=== PATIENT | male | born 1960 | race Caucasian/White ===

== ENCOUNTER 2022-06-13 14:55 | Emergency (ER) | payer BC ==
[~2022-06-13] VITALS: Ht 177.8 cm; Wt 131.8 kg
[~2022-06-13 14:55] MED LIST: BLOOD PRESSURE PO; DOXYCYCLINE 10100 MG PO; INDOCIN 25MG CA25 MG PO; ZYLOPRIM 100MG100 MG PO
[2022-06-13 14:58] VITALS: TEMP 97.9
[2022-06-13] MEDS ORDERED: NORCO 325 MG-51 TAB PO (18:24)
[2022-06-13 19:02] VITALS: BP 130/81; PULSE 80
== END 2022-06-13 19:00 | disposition home or self-care (01) ==
LOC: COL.ER 14:55
DX: S43.015A Anterior dislocation of left humerus, initial encounter (principal); S70.12XA Contusion of left thigh, initial encounter; S80.11XA Contusion of right lower leg, initial encounter; V84.0XXA Driver of special agricultural vehicle injured in traffic accident, initial encounter; Y92.410 Unspecified street and highway as the place of occurrence of the external cause
CPT/HCPCS: J1170; J2704

== ENCOUNTER 2022-10-18 16:12 | Emergency (ER) | payer BC ==
[~2022-10-18] VITALS: Ht 177.8 cm; Wt 136.4 kg
[~2022-10-18 16:12] MED LIST changes: +NORCO 325 MG-51 TAB PO
[2022-10-18 16:53] LABS: INR 1.7 (0.8-3.0); PROTHROMBIN TIME 19.8 SECONDS (9.7-12.8)
[2022-10-18 16:56] LABS: BASO % 0.2 % (0.0-2.0); EOS % 0.1 % (0.0-4.0); GRAN # 8.5 K/mm3 (1.4-6.5); GRAN % 83.9 % (42.2-75.2); HEMATOCRIT 43.6 % (42.0-52.0); HEMOGLOBIN 14.3 g/dl (13.5-18.0); LYMPH # 0.7 K/mm3 (1.2-3.4); LYMPH % 6.8 % (20.0-51.0); MEAN CELL VOLUME 89 fl (80.0-100.0); MEAN CORPUSCULAR HEMOGLOBIN 29 pg (27-31); MEAN CORPUSCULAR HGB CONC 33 g/dl (33.0-37.0); MEAN PLATELET VOLUME 10.4 fl (7.4-10.4); MONO # 0.9 K/mm3 (0.1-0.6); MONO % 8.5 % (1.7-9.3); PARTIAL THROMBOPLASTIN TIME 32.1 SECONDS (26.0-37.0); PLATELET COUNT 146 K/mm3 (130-400); RED BLOOD COUNT 4.91 M/mm3 (4.20-5.60); REDCELL DISTRIBUTION WIDTH-CV 14.5 % (11.5-14.5)
[2022-10-18 17:04] LABS: ALBUMIN 3.4 gm/dL (3.4-4.8); BILIRUBIN,TOTAL 0.7 mg/dL (0.2-1.2); CALCIUM 8.9 mg/dL (8.4-10.2); CREATININE, serum 1.43 mg/dL (0.72-1.25); POTASSIUM 3.7 mmol/L (3.5-4.5); TOTAL PROTEIN 6.7 gm/dL (6.2-8.1)
[2022-10-18 17:10] LABS: TROPONIN-I 0.015 ng/mL (0.00-0.033)
[2022-10-18 17:50] LABS: COLLECTION METHOD CLEAN CATCH
[2022-10-18 17:55] LABS: MUCOUS Present (NOT PRESENT); SQUAMOUS EPITHELIAL 0-2 /hpf (0-10); URINE BACTERIA None Seen /hpf (NONE SEEN)
[2022-10-18 17:58] LABS: URINE APPEARANCE Clear (CLEAR/HAZY); URINE BLOOD Negative (NEGATIVE); URINE COLOR Yellow (YELLOW); URINE GLUCOSE Negative (NEGATIVE); URINE KETONE Negative (NEGATIVE); URINE NITRATE Negative (NEGATIVE); URINE PROTEIN(semi-quant) TRACE (NEGATIVE); URINE UROBILINOGEN 0.2 (NEGATIVE)
[2022-10-18] MEDS ORDERED: DOXYCYCLINE 10100 MG PO (18:14)
[2022-10-18 18:40] VITALS: BP 116/67; PULSE 58; TEMP 100.9
== END 2022-10-18 18:40 | disposition home or self-care (01) ==
LOC: COL.ER 16:12
PROVIDERS: Family Medicine
DX: T14.8XXA Other injury of unspecified body region, initial encounter (principal); E86.0 Dehydration; W57.XXXA Bitten or stung by nonvenomous insect and other nonvenomous arthropods, initial encounter
CPT/HCPCS: J7030

== ENCOUNTER 2023-08-24 10:31 | Inpatient (IN) | payer BC ==
[~2023-08-24] VITALS: Ht 177.8 cm; Wt 134.0 kg
[2023-08-24] VITALS (16 sets, daily range): BP systolic 109–143; BP diastolic 59–94; PULSE 59–115; TEMP 97.5–98.1
[2023-08-24] MEDS ORDERED: NS 1,000 ML IV ONE (11:15)
[2023-08-24] MEDS ORDERED: dilTIAZem 25 MG/5 ML VIAL IV ONE (11:15)
[2023-08-24 11:25] LABS: BASO % 0.4 % (0.0-2.0); EOS # 0.1 K/mm3 (0.0-0.7); EOS % 1.3 % (0.0-4.0); GRAN # 3.2 K/mm3 (1.4-6.5); GRAN % 58.9 % (42.2-75.2); HEMATOCRIT 40.7 % (42.0-52.0); HEMOGLOBIN 13.1 g/dl (13.5-18.0); LYMPH # 1.4 K/mm3 (1.2-3.4); LYMPH % 24.9 % (20.0-51.0); MEAN CELL VOLUME 90 fl (80.0-100.0); MEAN CORPUSCULAR HEMOGLOBIN 29 pg (27-31); MEAN CORPUSCULAR HGB CONC 32 g/dl (33.0-37.0); MEAN PLATELET VOLUME 11.9 fl (7.4-10.4); MONO # 0.8 K/mm3 (0.1-0.6); MONO % 14.3 % (1.7-9.3); PLATELET COUNT 153 K/mm3 (130-400); RED BLOOD COUNT 4.51 M/mm3 (4.20-5.60); REDCELL DISTRIBUTION WIDTH-CV 13.9 % (11.5-14.5)
[2023-08-24 11:34] LABS: INR 1.7 (0.8-3.0); PROTHROMBIN TIME 18.5 SECONDS (9.7-12.8)
[2023-08-24] MEDS ORDERED: ZYLOPRIM 300MG300 MG PO (11:58)
[2023-08-24] MEDS ORDERED: ELIQUIS 5MG PO (11:58)
[2023-08-24] MEDS ORDERED: COREG 6.256.25 MG/TA PO (11:58)
[2023-08-24] MEDS ORDERED: OMEGA-3 1000 MG1 CAP PO (11:59)
[2023-08-24] MEDS ORDERED: LASIX 20MG TABL20 MG PO (11:59)
[2023-08-24] MEDS ORDERED: ZESTRIL40 MG PO (12:00)
[2023-08-24] MEDS ORDERED: KLOR-CON SPRIN10 MEQ PO (12:00)
[2023-08-24] MEDS ORDERED: APRESOLINE50 MG PO (12:00)
[2023-08-24] MEDS ORDERED: VITAMIN C500 MG PO (12:01)
[2023-08-24] MEDS ORDERED: CRESTOR 10MG10 MG PO (12:01)
[2023-08-24] MEDS ORDERED: VITAMIN D31000 IU PO (12:02)
[2023-08-24] MEDS ORDERED: CORDARONE200 MG/TAB PO (12:03)
[2023-08-24 12:04] LABS: ALBUMIN 3.3 g/dL (3.4-4.8); CREATININE, serum 0.93 mg/dL (0.72-1.25); POTASSIUM 3.7 mEq/L (3.5-4.5); TOTAL PROTEIN 6.2 g/dl (6.2-8.1)
[2023-08-24 12:20] LABS: BILIRUBIN,TOTAL 0.9 mg/dL (0.2-1.2)
[2023-08-24] MEDS ORDERED: Acetaminophen 325 MG TAB PO PRN (13:00)
[2023-08-24] MEDS ORDERED: NS 1,000 ML IV SCH (13:00)
[2023-08-24] MEDS ORDERED: *Potassium Replacement Protocol MC SCH (13:15)
[2023-08-24 13:54] LABS: MAGNESIUM 1.9 mg/dL (1.6-2.6); PHOSPHOROUS 2.4 mg/dL (2.3-4.7)
[2023-08-24] MEDS ORDERED: Carvedilol 6.25 MG TAB PO SCH (17:00)
[2023-08-24] MEDS ORDERED: Omega-3 Fatty Acid Esters (OTC) 1,000 MG CAP PO SCH (21:00)
[2023-08-24] MEDS ORDERED: hydrALAZINE 25 MG TAB PO SCH (21:00)
[2023-08-24] MEDS ORDERED: Rosuvastatin 10 MG **** subs to Atorvastatin 20 MG PO SCH (21:00)
[2023-08-24] MEDS ORDERED: Apixaban 5 MG TAB PO SCH (21:00)
[2023-08-24] MEDS ORDERED: Allopurinol 300 MG TAB PO SCH (21:00)
[2023-08-24] MEDS ORDERED: Amiodarone 200 MG TAB PO SCH (21:00)
[2023-08-24] MEDS ORDERED: Atorvastatin 20 MG TAB PO SCH (21:00)
--- NOTE | 2023-08-24 21:34 | NUR ---
patient lying in bed, alert and oriented x4. pt denies chest pain and shortness of breath. IV in RH is patent, site is clean dry and intact with diltiazem running at 5ml/hr and NS running at 75 ml/hr. +1 pitting edema in BLE noted. pt has no further needs, questions, or concerns at this time. ambulating with steady gait, call light within reach. will continue to monitor.
[2023-08-25] VITALS (13 sets, daily range): BP systolic 110–136; BP diastolic 73–89; PULSE 82–107; TEMP 95.5–98.3
[2023-08-25 06:27] LABS: BASO % 0.3 % (0.0-2.0); EOS # 0.1 K/mm3 (0.0-0.7); EOS % 1.4 % (0.0-4.0); GRAN # 3.9 K/mm3 (1.4-6.5); HEMATOCRIT 36.9 % (42.0-52.0); HEMOGLOBIN 12.5 g/dl (13.5-18.0); LYMPH # 1.6 K/mm3 (1.2-3.4); LYMPH % 24.4 % (20.0-51.0); MEAN CELL VOLUME 87 fl (80.0-100.0); MEAN CORPUSCULAR HEMOGLOBIN 29 pg (27-31); MEAN CORPUSCULAR HGB CONC 34 g/dl (33.0-37.0); MEAN PLATELET VOLUME 11.6 fl (7.4-10.4); MONO # 0.7 K/mm3 (0.1-0.6); MONO % 11.6 % (1.7-9.3); PLATELET COUNT 139 K/mm3 (130-400); RED BLOOD COUNT 4.26 M/mm3 (4.20-5.60); REDCELL DISTRIBUTION WIDTH-CV 13.7 % (11.5-14.5)
[2023-08-25 06:48] LABS: CALCIUM 8.8 mg/dL (8.4-10.2); CREATININE, serum 0.92 mg/dL (0.72-1.25); MAGNESIUM 1.7 mg/dL (1.6-2.6); PHOSPHOROUS 2.7 mg/dL (2.3-4.7); POTASSIUM 3.7 mEq/L (3.5-4.5)
[2023-08-25] MEDS ORDERED: Potassium Bicarbonate/Citrate 20 MEQ Effervescent TAB PO SCH (08:00)
[2023-08-25] MEDS ORDERED: Lisinopril 20 MG TAB PO SCH (09:00)
[2023-08-25] MEDS ORDERED: Furosemide 20 MG TAB PO SCH (09:00)
--- NOTE | 2023-08-25 09:26 | NUR ---
Initial visit; Patient thanked Document Review Specialist for looking in on him and offering God's blessings for a thorough recovery. Document Review Specialist thanked patient for sharing his positive thoughts.
--- NOTE | 2023-08-25 10:13 | NUR ---
pattern worker met with patient and his to discuss discharge planning. Patient lives in [place] with his , Swapnil, P# [phone]. Second point of contact is Anitha, daughter, P# [phone]. PCP is Dr. Prescott, pharmacy is [facility]. No issues affording medications. Patient and wanted to establish a DPOA-HC. SW assisted patient and with completing their own separate DPOA-HC. SW and RN witnessed patient's signature. SW made copy of patient's DPOA and placed a copy in patient's chart and provided original and copies to patient and his . No DME. Patient reports being independent with ADLS and is able to transport herself to and from appointments. Patient would like to return home at time of discharge. Discharge plan: Home
--- NOTE | 2023-08-25 20:00 | NUR ---
Assessment complete. A&Ox3. Denies pain/nausea/shortness of breath. VS stable. Cardizem gtt@5ml/hr to right hand 20g-infusing without difficulty. Tele reporting Afib. Currently on RA. Has been up ambulating in the hallway. Plan of care discussed for this shift to include meds/NPO@0000/calling for questions/concerns. Verbalizes understanding. Call light in reach. Will monitor.
--- NOTE | 2023-08-25 20:27 | NUR ---
SPoke with Dr Ventura-QTC [id number]-okay to give sotalol. Hold Hyralazine at this time for BP 110/70.
[2023-08-26] VITALS (12 sets, daily range): BP systolic 120–141; BP diastolic 39–89; PULSE 63–85; TEMP 97.6–97.7
--- NOTE | 2023-08-26 05:05 | NUR ---
Patient had an uneventful night. TELE reporting A gib. VS stable. INT to right hand flushes well-cradizem@5ml/hr infusing without difficulty. Denies pain/nausea/shortness of breath. Has remained NPO since 0000 for cards work up today per order. Denies current needs. Call light in reach. Will monitor.
[2023-08-26 08:10] LABS: CALCIUM 8.6 mg/dL (8.4-10.2); CREATININE, serum 0.98 mg/dL (0.72-1.25); POTASSIUM 3.7 mEq/L (3.5-4.5)
[2023-08-26 08:42] LABS: BASO % 0.3 % (0.0-2.0); EOS # 0.1 K/mm3 (0.0-0.7); EOS % 1.4 % (0.0-4.0); GRAN # 3.9 K/mm3 (1.4-6.5); GRAN % 62.7 % (42.2-75.2); HEMOGLOBIN 13.1 g/dl (13.5-18.0); LYMPH # 1.4 K/mm3 (1.2-3.4); LYMPH % 22.1 % (20.0-51.0); MEAN CELL VOLUME 86 fl (80.0-100.0); MEAN CORPUSCULAR HEMOGLOBIN 29 pg (27-31); MEAN CORPUSCULAR HGB CONC 34 g/dl (33.0-37.0); MONO # 0.8 K/mm3 (0.1-0.6); PLATELET COUNT 145 K/mm3 (130-400); RED BLOOD COUNT 4.52 M/mm3 (4.20-5.60); REDCELL DISTRIBUTION WIDTH-CV 13.7 % (11.5-14.5)
[2023-08-26] MEDS ORDERED: LR 1,000 ML IV SCH (09:15)
[2023-08-26 09:27] LABS: ALBUMIN 3.2 g/dL (3.4-4.8); CALCIUM 9.1 mg/dL (8.4-10.2); CREATININE, serum 0.97 mg/dL (0.72-1.25); MAGNESIUM 1.8 mg/dL (1.6-2.6); PHOSPHOROUS 2.9 mg/dL (2.3-4.7); POTASSIUM 3.7 mEq/L (3.5-4.5)
[2023-08-26] MEDS ORDERED: CEPHALEXIN500 M1 PO (09:30)
[2023-08-26] MEDS ORDERED: BETAPACE 80MG80 MG PO (09:30)
--- NOTE | 2023-08-26 09:40 | NUR ---
Patient alert and oriented x4. Denies pain or discomfort this morning. Maintains NPO status for cardioversion/loop recorder implant procedure. All medications except PO lasix okay to be administered per cardiology. motorcycle sales associate to administer medications. Discussed blood pressures this morning with cardiology. Heart rate tachycardic, rhythm irregular. Consents for procedures obtained. at bedside, call light within reach. All needs met at this time.
--- NOTE | 2023-08-26 10:22 | NUR ---
Patient resting in chair with at bedside. 0900 Lasix held per eMAR. Patient denies any pain. NPO for cardiac procedure this afternoon. Patient on telemetry. Patient denies any concerns at this time.
[2023-08-26] MEDS ORDERED: Lidocaine PF 1% (10 MG/ML) 5 ML VIAL ONE (13:13)
--- NOTE | 2023-08-26 13:24 | NUR ---
Patient off unit at this time for cardioversion/loop recorder procedure. LR dash, cardizem drip running at 5ml/hr. at bedside.
[2023-08-26] MEDS ORDERED: Hydrocortisone 1% Cream 30 GM TUBE TP PRN (14:45)
--- NOTE | 2023-08-26 15:45 | NUR ---
Pt back to [facility] - bedside handoff performed with DOMINIC Aparicio. Vitals initiated and stable. Call light in reach, at bedside, pt/ denies questions or concerns
--- NOTE | 2023-08-26 17:17 | NUR ---
Patient returned from loop recorder procedure around 1530, VSS, patient alert and oriented x4. Denies pain. Discharge orders received for one hour post procedure. Discharge instructions discussed with patient including incision care/restrictions, new medications/changed medications, education packets. Patient verbalized understanding. IV discontinued to right hand with no complications. Telemetry off. Patient escorted out by staff and via wheelchair.
[2023-08-26] MEDS ORDERED: Cephalexin 500 MG CAP PO SCH (21:00)
== END 2023-08-26 17:00 | disposition home or self-care (01) | DRG 261 ==
LOC: COL.ER 10:31 → MEDICAL 11:31
PROVIDERS: Nurse Practitioner Family; Physician Assistant; ADMIT Internal Medicine
PROC: 0JH632Z Insertion of Monitoring Device into Chest Subcutaneous Tissue and Fascia, Percutaneous Approach (ICD-10-PCS; principal; 2023-08-26)
PROC: 5A2204Z Restoration of Cardiac Rhythm, Single (ICD-10-PCS; 2023-08-26)
DX: I48.0 Paroxysmal atrial fibrillation (principal); Z68.41 Body mass index [BMI] 40.0-44.9, adult; M10.9 Gout, unspecified; I25.10 Atherosclerotic heart disease of native coronary artery without angina pectoris; E66.01 Morbid (severe) obesity due to excess calories; G47.33 Obstructive sleep apnea (adult) (pediatric); I12.9 Hypertensive chronic kidney disease with stage 1 through stage 4 chronic kidney disease, or unspecified chronic kidney disease; N18.9 Chronic kidney disease, unspecified; I35.1 Nonrheumatic aortic (valve) insufficiency; E87.6 Hypokalemia; D64.9 Anemia, unspecified; I42.8 Other cardiomyopathies; Z79.899 Other long term (current) drug therapy; Z79.01 Long term (current) use of anticoagulants; Z99.89 Dependence on other enabling machines and devices
CPT/HCPCS: C1764; J2704; J7030